=== PATIENT | female | born 1970 | race Caucasian/White ===

== ENCOUNTER 2018-09-01 22:52 | Emergency (ER) | payer MEDICAID ==
[~2018-09-01 22:52] MED LIST: ATIVAN PO; HYDROCODONE PO
[2018-09-01 22:55] VITALS: BP 125/82
--- NOTE | 2018-09-01 23:02 | NUR ---
PT ASKED TO BE NPO, PRESENT WITH CUP OF TEA AND ASKED TO STOP DRINKING
--- NOTE | 2018-09-01 23:03 | NUR ---
REQUEST RECORDS FROM [facility] FOR RECENT HOSPITALIZATION AND TODAYS VISIT TO ER.
--- NOTE | 2018-09-02 00:30 | NUR ---
NOT IN LOBBY AT 0000, [id number], [id number]
== END 2018-09-02 00:35 ==
LOC: ED 09-02 00:30
DX: R10.10 Upper abdominal pain, unspecified (principal)
CPT/HCPCS: 99281

== ENCOUNTER 2018-11-15 13:39 | Emergency (ER) | payer MEDICAID ==
[~2018-11-15] VITALS: Ht 154.9 cm; Wt 100.8 kg
[2018-11-15 13:50] VITALS: BP 140/84
== END 2018-11-15 14:35 | disposition home or self-care (01) ==
LOC: ED 14:30
DX: F41.1 Generalized anxiety disorder (principal); F32.9 Major depressive disorder, single episode, unspecified
CPT/HCPCS: 99284; Q0162

== ENCOUNTER 2018-11-28 18:59 | Emergency (ER) | payer MEDICAID ==
[~2018-11-28] VITALS: Ht 154.9 cm; Wt 99.2 kg
[2018-11-28 19:47] LABS: BASOPHILS # (AUTO) 0.07 x10^3/uL (0-0.1); BASOPHILS % (AUTO) 1 % (0-1); EOSINOPHILS # (AUTO) 0.27 x10^3/uL (0-0.4); EOSINOPHILS % (AUTO) 3 % (1-7); LYMPHOCYTES # (AUTO) 2.97 x10^3/uL (1-3.4); LYMPHOCYTES % (AUTO) 35 % (22-44); MD NO; MEAN CORPUSCULAR HEMOGLOBIN 27.1 pg (27.0-34.8); MEAN CORPUSCULAR HGB CONC 32.5 g/dL (32.4-35.8); MEAN CORPUSCULAR VOLUME 83.5 fL (80-100); MEAN PLATELET VOLUME 8.2 fL (7.4-10.4); MONOCYTES # (AUTO) 0.51 x10^3/uL (0.2-0.8); MONOCYTES % (AUTO) 6 % (2-9); NEUTROPHILS # (AUTO) 4.72 x10^3/uL (1.8-6.8); NEUTROPHILS % (AUTO) 55 % (42-75); PLATELET COUNT 384 x10^3/uL (130-400); RED BLOOD COUNT 4.98 x10^6/uL (3.82-5.3); RED CELL DISTRIBUTION WIDTH 14.9 % (9.6-15.2)
--- NOTE | 2018-11-28 19:53 | NUR ---
pt to room from lobby
[2018-11-28 19:59] LABS: ALANINE AMINOTRANSFERASE 27 U/L (12-78); ALBUMIN 3.5 g/dL (3.4-5.0); ANION GAP 8 mmol/L (5-15); CALCIUM 8.9 mg/dL (8.5-10.1); CHLORIDE 107 mmol/L (98-107); CREATININE 0.98 mg/dL (0.55-1.02)
[2018-11-28 20:03] LABS: ALKALINE PHOSPHATASE 94 U/L (45-117); BILIRUBIN,TOTAL 0.3 mg/dL (0.2-1.0); TOTAL PROTEIN 8.2 g/dL (6.4-8.2)
[2018-11-28] MEDS ORDERED: KETOROLAC 30 MG/1 ML ONE (20:20)
[2018-11-28] MEDS ORDERED: DIAZEPAM 5 MG TABLET ONE (20:20)
[2018-11-28] MEDS ORDERED: DIAZEPAM 5 MG TABLET PO ONE (20:30)
[2018-11-28] MEDS ORDERED: KETOROLAC 30 MG/1 ML IM ONE (20:30)
[2018-11-28 20:43] LABS: MICROSCOPIC NOT IND
[2018-11-28 20:49] LABS: CULTURE INDICATED? NO
[2018-11-28 21:32] VITALS: BP 136/92
== END 2018-11-28 21:34 | disposition home or self-care (01) ==
LOC: ED 21:29
DX: S29.012A Strain of muscle and tendon of back wall of thorax, initial encounter (principal); F32.9 Major depressive disorder, single episode, unspecified; F41.1 Generalized anxiety disorder; W06.XXXA Fall from bed, initial encounter; Y93.89 Activity, other specified; Y92.89 Other specified places as the place of occurrence of the external cause; Y99.8 Other external cause status
CPT/HCPCS: 36415; 71046; 73010; 80053; 81003; 83690; 84703; 85025; 93005; 96372; 99284; J1885